=== PATIENT | female | born 1985 | race Caucasian/White ===

== ENCOUNTER 2018-08-03 11:58 | Emergency (ER) | payer OTHER ==
[2018-08-03 12:24] VITALS: BP 129/68; PULSE 110; TEMP 98.1; BMI 18.6
--- NOTE | 2018-08-03 13:36 | PDOC ---
History of Present Illness - General Chief Complaint: Shortness of Breath Stated Complaint: R/O DVT Time Seen by Provider: 08/03/18 12:54 History Source: Patient, Spouse Exam Limitations: No Limitations - History of Present Illness Initial Comments: 08/03/18 13:26 Pt. is a 32 y.o. F w/ PMHx. of Neurological Lymes disease?, seizures?, prothrombin gene mutation, saddle emboli (6 months ago discharged on Lovenox and Warfarin-however Pt. has only been taking Lovenox), seizure disorder ( smokes marijuana to treat), DVT in LLE, and current 1/2 pack per day smoker presents with shortness of breath, fatigue and increased lethargy. Pt. states that this is the 3rd hospital that she has been to in the last 2 days. Pt. recently left AMA from [facility] where she was given 60mg Lovenox around 8 -9am. Pt. endorses lower extremity tenderness L>R, bilateral chest tenderness, intermittent numbness of lower extremities. Pt. endorses intermittent sensations of being hot and then cold as well as 30kg unintentional weight loss over the last year. Pt. denies fevers, dizziness, lightheadedness, palpitations , or sudden change in vision at this time. Pt. denies being on oral contraceptives as she has had Esure EKG, LE Duplex, CTA, bHCG, CBC and CMP were ordered to rule out DVTs and PE. IV Tylenol was ordered for pain. 08/03/18 16:27 EKG: showed NSR, no abnormalities, QTc-35, HR-86 CTA- negative for acute pathology including PE Duplex negative for DVTs Pt. medically cleared for discharge with instructions for outpatient follow-up. Timing/Duration: intermittent Severity: mild Associated Symptoms: reports: chest pain, loss of appetite, rash, seizure, shortness of breath. denies: fever/chills, nausea/vomiting Aspirin Received prior to arrival: Yes: no aspirin today Beta Ara Contraindications(Core Measure): Yes: Not Prescribed Past History - Travel Traveled outside of the country in the last 30 days: No Close contact w/someone who was outside of country & ill: No - Past Medical History Allergies/Adverse Reactions: Allergies Allergy/AdvReac Type Severity Reaction Status Date / Time adhesive tape Allergy Verified 08/03/18 12:14 doxycycline Allergy Verified 08/03/18 12:14 Penicillins Allergy Verified 08/03/18 12:14 shellfish derived Allergy Verified 08/03/18 12:14 Home Medications: Ambulatory Orders Diphenhydramine [Benadryl -] 50 mg PO HS 08/03/18 Enoxaparin [Lovenox -] 60 mg SQ DAILY 08/03/18 Ondansetron HCl [Zofran] 4 mg PO DAILY PRN 08/03/18 Anemia: No Cancer: No Cardiac Disorders: No Hx Myocardial Infarction: No COPD: No CHF: No DVT: Yes Dementia: No Diabetes: No Hx Glaucoma: No Dialysis: No Disorders: Yes Seizures: Yes Other medical history: DVT, PE, LYMES DISEASE, PROTHROMBIN GENE MUTATION - Surgical History Other Surgical History: 08/03/18 13:48 Ex-LAP for IUD retrieval - Immunization History Immunization Up to Date: Yes - Suicide/Smoking/Psychosocial Hx Smoking History: Current every day smoker Number of Cigarettes Smoked Daily: 10 Information on smoking cessation initiated: No Hx Alcohol Use: No Drug/Substance Use Hx: No (MARIJUANA) Review of Systems - Review of Systems Is the patient limited Nepalese proficient: No Constitutional: Yes: Loss of Appetite, Unintentional Wgt. Loss. No: Chills, Diaphoresis, Fever, Weakness HEENTM: No: Eye Pain, Blurred Vision, Recent change in vision, Double Vision, Tinnitus, Throat Pain, Difficulty Swallowing Respiratory: Yes: Shortness of Breath, SOB with Exertion, SOB at Rest. No: Cough, Orthopnea, Wheezing, Productive cough, Hemoptysis Cardiac (ROS): Yes: Chest Tightness. No: Chest Pain, Edema, Lightheadedness, Palpitations ABD/GI: Yes: Poor Appetite. No: Constipated, Diarrhea, Difficulty Swallowing, Nausea, Vomiting : No: Burning, Dysuria, Discharge, Frequency, Flank Pain, Hematuria, Incontinence Musculoskeletal: No: Back Pain, Muscle Pain, Muscle Weakness Integumentary: Yes: Erythema, Pruritus (takes 50mg Benadryl everyday), Rash ( reaction to adhesives ) Neurological: Yes: Paresthesia, Pre-Existing Deficit, Tremors. No: Headache, Numbness, Unsteady Gait, Dizziness Psychiatric: Yes: Anxiety Endocrine: Yes: Intolerance to Cold, Intolerance to Heat, Unexplained Weight Loss Hematologic/Lymphatic: Yes: Blood Clots *Physical Exam - Vital Signs Last Vital Signs Temp Pulse Resp BP Pulse Ox 98.1 F 110 H 18 129/68 97 08/03/18 12:14 08/03/18 12:14 08/03/18 12:14 08/03/18 12:14 08/03/18 12:14 - Physical Exam General Appearance: Yes: Nourished, Appropriately Dressed, Apparent Distress, Thin HEENT: positive: Normal ENT Inspection, Normal Voice, Symmetrical Neck: positive: Trachea midline, Supple Respiratory/Chest: positive: Chest Tender, Lungs Clear, Decreased Breath Sounds (poor effort?). negative: Respiratory Distress, Accessory Muscle Use, Rapid RR , Crackles, Rales, Wheezing Cardiovascular: positive: Regular Rhythm, Regular Rate, S1, S2. negative: Edema , JVD, Murmur, Tachycardia Vascular Pulses: Dorsalis-Pedis (R): 2+, Doralis-Pedis (L): 2+ Gastrointestinal/Abdominal: positive: Soft. negative: Tender, Distended, Guarding, Rebound, Tenderness, Hepatomegaly Rectal Exam: positive: deferred Musculoskeletal: positive: Normal Inspection. negative: CVA Tenderness, Vertebral Tenderness Extremity: positive: Normal Capillary Refill, Normal Inspection, Normal Range of Motion, Calf Tenderness. negative: Coldness, Pedal Edema, Swelling Integumentary: positive: Dry, Warm, Rash (where adhesive tape was used ), Ecchymosis (along Lovenox injection sites ) Neurologic: positive: Fully Oriented, Alert, Normal Response, Motor Strength 5/5 , Respond to painful stimul, Responsive, Numbness (L>R) Moderate Sedation - Procedure Monitoring Vital Signs: Procedure Monitoring Vital Signs Temperature 98.1 F 08/03/18 12:14 Pulse Rate 110 H 08/03/18 12:14 Respiratory Rate 18 08/03/18 12:14 Blood Pressure 129/68 08/03/18 12:14 O2 Sat by Pulse Oximetry (%) 97 08/03/18 12:14 ED Treatment Course - LABORATORY CBC & Chemistry Diagram: 08/03/18 13:38 08/03/18 13:38 *DC/Admit/Observation/Transfer Diagnosis at time of Disposition: Anxiety - Discharge Dispostion Disposition: HOME Condition at time of disposition: Stable Decision to Admit order: No - Referrals Referrals: Yeimy Rasmussen MD [Staff Physician] - 1 week Anthony Sandoval MD [Staff Physician] - 1 week - Patient Instructions Printed Discharge Instructions: DI for Pulmonary Embolism Additional Instructions: You came in for suspected Pulmonary Embolism We did imaging of the Chest and did not find any evidence of pulmonary embolism or any abnormalities. EKG did not show any abnormalities. We did imaging of your lower extremities and did not find any evidence of deep vein thrombosis (blood clots). Please continue taking your medications as they were prescribed. Please follow up with your dice manager, Dr. Gaffney within 1 week. Please follow up with your Primary Care Physician within 1 week. Please return to the ED if you are experiencing worsening shortness of breath, chest pain, calf pain or any other concerning symptoms. - Post Discharge Activity
[2018-08-03] MEDS ORDERED: ACETAMINOPHEN 1000 MG/100 ML VIAL (NON FORMULARY) IVPB ONE (13:38)
[2018-08-03] MEDS ORDERED: ACETAMINOPHEN INJECTION 100 ML IVPB ONE (13:58)
[2018-08-03 14:05] LABS: BASO % 0.3 % (0-2.0); HEMATOCRIT 44.8 % (32.4-45.2); HEMOGLOBIN 14.6 GM/dL (10.7-15.3); LYMPH % 23.7 % (8-40); MCH 31.5 pg (25.7-33.7); MCHC 32.6 g/dl (32.0-36.0); MEAN CELL VOLUME 96.6 fl (80-96); MEAN PLT VOLUME 8.3 fl (7.5-11.1); MONO % 6.8 % (3.8-10.2); NEUT % 68.2 % (42.8-82.8); PLATELET COUNT 171 K/MM3 (134-434); RBC 4.64 M/mm3 (3.60-5.2); RDW 14.5 % (11.6-15.6)
[2018-08-03 14:34] LABS: ALBUMIN 4.1 g/dl (3.4-5.0); ALK PHOS 63 U/L (45-117); ANION GAP 7 MMOL/L (8-16); BILIRUBIN,TOTAL 0.8 mg/dL (0.2-1); BLOOD UREA NITROGEN 7 mg/dL (7-18); CHLORIDE 101 mmol/L (98-107); CO2 28 mmol/L (21-32); CREATININE 0.8 mg/dL (0.55-1.3); GLUCOSE,RANDOM 88 mg/dL (74-106); MAGNESIUM 2.1 mg/dL (1.8-2.4); PHOSPHOROUS 2.8 mg/dL (2.5-4.9); POTASSIUM 3.9 mmol/L (3.5-5.1); SGOT/AST 34 U/L (15-37); SGPT/ALT 32 U/L (13-61); SODIUM 136 mmol/L (136-145); TOT PROT 7.4 g/dl (6.4-8.2)
--- NOTE | 2018-08-04 16:48 | EKG ---
Test Reason : Blood Pressure : / mmHG Vent. Rate : 086 BPM Atrial Rate : 086 BPM P-R Int : 114 ms QRS Dur : 098 ms QT Int : 364 ms P-R-T Axes : 068 073 055 degrees QTc Int : 435 ms NORMAL SINUS RHYTHM NORMAL ECG NO PREVIOUS ECGS AVAILABLE Confirmed by MD SAMARA, KETAN ([id number]) on 08/04/2018 4:48:38 PM Referred By: Confirmed By:KETAN PASCUAL MD
== END 2018-08-03 18:17 | disposition home or self-care (01) ==
LOC: JER 11:58
PROC: 3E033NZ Introduction of Analgesics, Hypnotics, Sedatives into Peripheral Vein, Percutaneous Approach (ICD-10-PCS; principal; 2018-08-03)
DX: F41.9 Anxiety disorder, unspecified (principal); Z86.711 Personal history of pulmonary embolism; Z86.718 Personal history of other venous thrombosis and embolism; Z79.01 Long term (current) use of anticoagulants; D68.52 Prothrombin gene mutation; Z86.19 Personal history of other infectious and parasitic diseases; G40.909 Epilepsy, unspecified, not intractable, without status epilepticus
CPT/HCPCS: 36415; 71275-TC; 80053; 83735; 84100; 84702; 85025; 93005; 93010; 93970-TC; 96374; 99283-25; J0131